=== PATIENT | female | born 1930 | race Caucasian/White ===

== ENCOUNTER 2017-07-28 11:01 | Emergency (ER) | payer MEDICARE, BC ==
--- NOTE | 2017-07-28 13:02 | EDM.PDOC ---
ED HPI GENERAL MEDICAL PROBLEM - General Chief Complaint: Gastrointestinal Problem Stated Complaint: STOMACH PAIN Time Seen by Provider: 07/28/17 11:01 Source of Information: Reports: Patient, Family History Limitations: Reports: No Limitations - History of Present Illness INITIAL COMMENTS - FREE TEXT/NARRATIVE: 87 y.o.w.ligia came with her friend to the ed due to mucus in her stool since this am. Pt stated as well her stool is loose, she took imodium for that. Pt denies history of IBS,Chron's disease UC or any other inflammatory bowel disease. No f/ c no N/C/D or any other acute medical issues. No change of meds. Onset: Today Onset Date: 07/28/17 Onset Time: 07:00 Duration: Hour(s): Location: Reports: Abdomen Quality: Reports: Other (m) Severity: Mild Improves with: Reports: Other (imodium) Worsens with: Reports: None Context: Reports: Other (mucousy stool) Associated Symptoms: Reports: No Other Symptoms lower abdomen Pain Score (Numeric/FACES): 2 - Related Data Allergies Allergy/AdvReac Type Severity Reaction Status Date / Time No Known Allergies Allergy Verified 07/28/17 12:59 Home Meds: Home Meds Diltiazem HCl [Diltiazem 24Hr Cd] 240 mg PO DAILY 02/01/14 [History] Ascorbic Acid [Vitamin C with Sharonda Hips] 1,000 mg PO DAILY 03/10/14 [History] Cholecalciferol (Vitamin D3) [Vitamin D3] 400 unit PO DAILY 03/10/14 [History] Mometasone Furoate [Elocon 0.1% Lotion] 30 ml TP DAILY 03/10/14 [History] [place]-3 Fatty Acids [[place]-3] 1,000 mg PO DAILY 03/10/14 [History] Ranitidine [Zantac] 75 mg PO BEDTIME PRN 03/10/14 [History] Social & Family History - Tobacco Use Years of Tobacco use: 20 Used Tobacco, but Quit: Yes - Alcohol Use Days Per Week of Alcohol Use: 7 Number of Drinks Per Day: 2 Total Drinks Per Week: 14 - Recreational Drug Use Recreational Drug Use: No ED ROS GENERAL - Review of Systems Review Of Systems: See Below Constitutional: Reports: No Symptoms HEENT: Reports: No Symptoms Respiratory: Reports: No Symptoms Cardiovascular: Reports: No Symptoms Endocrine: Reports: No Symptoms GI/Abdominal: Reports: Other (mucousy stool) : Reports: No Symptoms Musculoskeletal: Reports: No Symptoms Skin: Reports: No Symptoms Neurological: Reports: No Symptoms Psychiatric: Reports: No Symptoms Hematologic/Lymphatic: Reports: No Symptoms Immunologic: Reports: No Symptoms ED EXAM, GI/ABD - Physical Exam Exam: See Below Exam Limited By: No Limitations General Appearance: Alert, WD/WN, No Apparent Distress Eyes: Bilateral: Normal Appearance Ears: Normal External Exam Nose: Normal Inspection Throat/Mouth: Normal Inspection, Normal Lips Head: Atraumatic, Normocephalic Neck: Normal Inspection Respiratory/Chest: No Respiratory Distress Cardiovascular: Normal Peripheral Pulses GI/Abdominal Exam: Other (mucousy stool) (Female) Exam: Deferred Rectal (Female) Exam: Deferred Back Exam: Normal Inspection Extremities: Normal Inspection, Normal Range of Motion, Non-Tender, No Pedal Edema Neurological: Alert, Oriented, CN II-XII Intact, Normal Cognition, Normal Gait, No Motor/Sensory Deficits Psychiatric: Normal Affect, Normal Mood Skin Exam: Warm, Dry, Intact, Normal Color, No Rash Lymphatic: No Adenopathy Course - Vital Signs Text/Narrative:: 87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 Pt stated as well her stool is loose, she took imodium for that. Pt denies history of IBS, Chron's disease UC or any other inflammatory bowel disease. No f/c no N/C/D or any other acute medical issues. No change of meds. PE: WNWD NAD Labs: WBC 8.8 H/H 14.7/42.3 BUN 11 Cr .08 and BMP WNL Glc 110 Na 133 K 4.1 UA neg Fecal WBC, Stool Cx are pending Impression: Mucous stool DDx: IBD, UC, Chrons .... Tx: non Reexam: Pt did fine here in the ed. She was ambulating fine, beeing in her usual state of health Plan: D/C with instructions Last Recorded V/S: Last Vital Signs Temp 36.6 C 07/28/17 11:10 Pulse 88 07/28/17 11:10 Resp 16 07/28/17 11:10 BP 124/64 07/28/17 11:10 Pulse Ox 100 07/28/17 11:10 - Orders/Labs/Meds Orders: Active Orders 24 hr Category Date Time Status CDIFF TOXIN A+B GROUP [OP] Stat Lab 07/28/17 11:35 Ordered CULTURE-STOOL [MREF] Stat Lab 07/28/17 11:30 Received LACTOFERRIN, FECAL BY MARC [REF] Stat Lab 07/28/17 11:30 Received OVA AND PARASITES [MREF] Stat Lab 07/28/17 11:30 Received Labs: Laboratory Tests 07/28/17 07/28/17 Range/Units 11:50 11:50 WBC 8.8 (4.5-12.0) X10-3/uL RBC 4.12 (3.23-5.20) x10(6)uL Hgb 14.0 (11.5-15.5) g/dL Hct 42.5 (30.0-51.3) % MCV 103.1 H (80-96) fL MCH 34.1 H (27.7-33.6) pg MCHC 33.0 (32.2-35.4) g/dL RDW 13.2 (11.5-15.5) % Plt Count 168 (125-369) X10(3)uL MPV 9.7 (7.4-10.4) fL Neut % (Auto) 77.8 (46-82) % Lymph % (Auto) 15.1 (13-37) % Fountain % (Auto) 5.0 (4-12) % Eos % (Auto) 1 (1.0-5.0) % Baso % (Auto) 1 (0-2) % Neut # (Auto) 6.9 (1.6-8.3) # Lymph # (Auto) 1.3 (0.6-5.0) # Fountain # (Auto) 0.4 (0.0-1.3) # Eos # (Auto) 0.1 (0.0-0.8) # Baso # (Auto) 0.1 (0.0-0.2) # Sodium 134 L (135-145) mmol/L Potassium 4.2 (3.5-5.3) mmol/L Chloride 99 L (100-110) mmol/L Carbon Dioxide 23 (23-29) mmol/L BUN 11 (8-23) mg/dL Creatinine 0.9 (0.6-1.3) mg/dL Est Cr Clr Drug Dosing 40.38 mL/min Estimated GFR (MDRD) 59 L (>60) BUN/Creatinine Ratio 12.2 (9-20) Glucose 115 (80-116) mg/dL Calcium 9.1 (8.6-10.2) mg/dL Departure - Departure Time of Disposition: 13:00 Disposition: Home, Self-Care 01 Condition: Good Clinical Impression: Diarrhea Qualifiers: Diarrhea type: unspecified type Qualified Code(s): R19.7 - Diarrhea, unspecified - Discharge Information Referrals: Chi Ingram MD [Primary Care Provider] - Forms: ED Department Discharge Additional Instructions: your stool lab results are pending, please take imodium for diarrhea, please increase water intake, f/u, come back if your symptoms get worse acutely - My Orders Last 24 Hours: My Active Orders 07/28/17 11:30 CULTURE-STOOL [MREF] Stat LACTOFERRIN, FECAL BY MARC [REF] Stat OVA AND PARASITES [MREF] Stat 07/28/17 11:35 CDIFF TOXIN A+B GROUP [OP] Stat - Assessment/Plan Last 24 Hours: My Active Orders 07/28/17 11:30 CULTURE-STOOL [MREF] Stat LACTOFERRIN, FECAL BY MARC [REF] Stat OVA AND PARASITES [MREF] Stat 07/28/17 11:35 CDIFF TOXIN A+B GROUP [OP] Stat
[2017-07-28 16:03] VITALS: BP 124/64
== END 2017-07-28 13:10 | disposition home or self-care (01) ==
LOC: FB.ED 11:01
DX: R19.7 Diarrhea, unspecified (principal); Z87.891 Personal history of nicotine dependence; Z79.899 Other long term (current) drug therapy
CPT/HCPCS: 36415; 80048; 83630; 85025; 87015; 87045; 87046; 87177; 87209; 87899; 99284